=== PATIENT | female | born 1965 | race African-American/Black ===

== ENCOUNTER 2022-09-22 13:08 | Emergency (ER) | payer SELFPAY ==
[2022-09-22] MEDS ORDERED: diphenhydrAMINE 50 MG/ML SDV IVPUSH ONE (14:09)
[2022-09-22] MEDS ORDERED: Ketorolac 30 MG/ML SDV IVPUSH ONE (14:09)
[2022-09-22] MEDS ORDERED: Metoclopramide 10 MG/2 ML SDV IVPUSH ONE (14:09)
[2022-09-22] MEDS ORDERED: Ondansetron 4 MG/2 ML SDV IVPUSH ONE (14:09)
[2022-09-22] MEDS ORDERED: Sodium Chloride 0.9% 1,000 ML IV ONE (14:09)
[2022-09-22 14:36] LABS: BASOPHILS PERCENT AUTO 0.7 % (0.0-1.5); EOSINOPHILS ABSOLUTE AUTO 0.1 K/uL (0.0-0.7); EOSINOPHILS PERCENT AUTO 2.1 % (0.0-7.0); HEMATOCRIT 40.7 % (36.0-46.0); HEMOGLOBIN 13.7 g/dL (12.0-16.0); LYMPHOCYTES PERCENT AUTO 34.8 % (16.0-40.0); MEAN CORPUSCULAR HEMOGLOBIN 30.9 pg (27.0-32.0); MEAN CORPUSCULAR HGB CONC 33.7 g/dL (31.0-37.0); MEAN CORPUSCULAR VOLUME 91.7 fL (80.0-98.0); MONOCYTES ABSOLUTE AUTO 0.4 K/uL (0.0-0.8); MONOCYTES PERCENT AUTO 14.5 % (0.0-15.0); NEUTROPHILS ABSOLUTE AUTO 1.4 K/uL (1.4-5.7); NEUTROPHILS PERCENT AUTO 47.9 % (48.0-80.0); NRBC ABSOLUTE 0 K/uL; PLATELET COUNT,PLT 239 K/uL (150-400); RED BLOOD CELL COUNT 4.44 M/uL (4.30-5.90)
[2022-09-22] MEDS ORDERED: Ketorolac 60 MG/2 ML SDV IM ONE (14:55)
[2022-09-22] MEDS ORDERED: Ondansetron 4 MG Tab.DIS PO ONE (14:55)
[2022-09-22 15:48] LABS: A/G RATIO 0.9 (0.9-1.6); ALBUMIN 3.8 g/dL (3.4-5.0); BILIRUBIN TOTAL 0.3 mg/dL (0.2-1.0); CALCIUM 10.1 mg/dL (8.5-10.1); CARBON DIOXIDE,CO2 30.6 mmol/L (21.0-32.0); EST CRCL DRUG DOSING (CG) 55.85 mL/min; POTASSIUM,K 4.3 mmol/L (3.5-5.1)
== END 2022-09-22 17:53 | disposition home or self-care (01) ==
LOC: MW.ED 13:08
DX: K59.00 Constipation, unspecified (principal); D72.819 Decreased white blood cell count, unspecified; G43.909 Migraine, unspecified, not intractable, without status migrainosus; Z88.0 Allergy status to penicillin
CPT/HCPCS: 36415; 74019; 80053; 85025; 96372; 99283; A9270; J1885; 99284

== ENCOUNTER 2022-12-20 14:34 | Emergency (ER) | payer BC, OTHER ==
[2022-12-20] MEDS ORDERED: Sodium Chloride 0.9% 10 ML Syringe FLUSH PRN (16:03)
[2022-12-20] MEDS ORDERED: Sodium Chloride 0.9% 2.5 ML Syringe FLUSH PRN (16:03)
[2022-12-20] MEDS ORDERED: Acetaminophen 500 MG Tab PO STA (16:03)
[2022-12-20] MEDS ORDERED: Ketorolac 30 MG/ML SDV IVPUSH STA (16:03)
[2022-12-20 16:34] LABS: BASOPHILS ABSOLUTE AUTO 0.02 K/uL (0.00-0.20); BASOPHILS PERCENT AUTO 0.7 % (0.0-1.0); EOSINOPHILS ABSOLUTE AUTO 0.08 K/uL (0.00-0.45); EOSINOPHILS PERCENT AUTO 2.6 % (0.0-6.0); HEMATOCRIT 35.1 % (37.0-47.0); HEMOGLOBIN 12.2 g/dL (12.0-16.0); LYMPHOCYTES ABSOLUTE AUTO 0.95 K/uL (1.00-4.80); LYMPHOCYTES PERCENT AUTO 31.5 % (24.0-44.0); MEAN CORPUSCULAR HEMOGLOBIN 31.5 pg (28.0-32.0); MEAN CORPUSCULAR HGB CONC 34.8 g/dL (32.0-36.0); MEAN CORPUSCULAR VOLUME 90.7 fL (83.0-99.0); MEAN PLATELET VOLUME 11.1 fL (9.4-12.3); MONOCYTES ABSOLUTE AUTO 0.39 K/uL (0.00-0.80); MONOCYTES PERCENT AUTO 12.9 % (0.0-8.0); NEUTROPHILS ABSOLUTE AUTO 1.58 K/uL (1.80-7.70); NEUTROPHILS PERCENT AUTO 52.3 % (41.0-71.0); PLATELET COUNT,PLT 203 K/uL (150-400); RED BLOOD CELL COUNT 3.87 M/uL (4.10-5.30); WHITE BLOOD CELL COUNT,WBC 3.02 K/uL (3.9-11.3)
[2022-12-20 17:06] LABS: ALBUMIN 3.7 g/dL (3.4-5.0); BILIRUBIN TOTAL 0.6 mg/dL (0.2-1.0); CALCIUM 9.1 mg/dL (8.5-10.1); CARBON DIOXIDE,CO2 26.2 mmol/L (21.0-32.0); CREATININE 0.9 mg/dL (0.6-1.0); EST CRCL DRUG DOSING (CG) 68.73 mL/min; POTASSIUM,K 3.7 mmol/L (3.5-5.1); PROTEIN TOTAL,TP 7.3 g/dL (6.4-8.2)
[2022-12-20] MEDS ORDERED: Iopamidol 755 MG/ML 500 ML Multipack Bottle IVPUSH ONE (17:47)
== END 2022-12-20 19:35 | disposition home or self-care (01) ==
LOC: MW.ED 14:34
DX: R10.9 Unspecified abdominal pain (principal); M79.604 Pain in right leg; Z88.0 Allergy status to penicillin; W19.XXXA Unspecified fall, initial encounter
CPT/HCPCS: 36415; 72131; 74177; 80053; 83690; 85025; 93971; 96374; 99284; A9270; J1885; J3490; Q9967